=== PATIENT | female | born 1975 | race African-American/Black ===

== ENCOUNTER 2019-07-28 05:29 | Emergency (ER) | payer BC, MEDICAID, SELFPAY ==
--- NOTE | ~2019-07-28 | XR_ITS ---
EXAMINATION: XR chest 2V DATE: 07/28/2019 05:57 INDICATION: Cough TECHNIQUE: PA and lateral views of the chest are obtained. COMPARISON: 05/31/2019 FINDINGS: The lungs are free of acute opacities. There is no pleural effusion or pneumothorax. The ca rdiomediastinal silhouette is normal. There is moderate thoracic spondylosis. IMPRESSION: 1. No acute cardiopulmonary abnormality. Reviewed, dictated and finalized at location A. [employer]
[2019-07-28 05:31] VITALS: BP 156/85; PULSE 89; RESP 20; TEMP 36.4; O2SAT 100
--- NOTE | 2019-07-28 05:58 | ED.URI ---
HPI - URI/Sore Throat General Chief Complaint: Upper Respiratory Infection Stated Complaint: sore throat Time Seen by Provider: 07/28/19 05:53 Source: RN notes reviewed History of Present Illness HPI Narrative: Patient presents to emergency department from home for upper respiratory infection. Patient states symptoms began yesterday. States that she has been having rhinorrhea sore throat and a cough that is been nonproductive. Denies any fevers or chills chest pain shortness of breath abdominal pain nausea vomiting diarrhea or any other symptoms. States she took some NyQuil at 10:00 last night. Denies any other symptoms at this time Related Data Home Medications Medication Instructions Recorded Confirmed aspirin 81 mg PO DAILY 05/31/19 metoprolol tartrate 25 mg 05/31/19 Allergies Allergy/AdvReac Type Severity Reaction Status Date / Time SHELLFISH Allergy Unknown Uncoded 05/31/19 13:21 Review of Systems Review of Systems: Narrative: Gen.: Denies fevers or chills Eyes: Denies eye pain or visual change ENT: Reports sore throat and congestion Respiratory: Denies shortness of breath reports nonproductive cough CV: Denies chest pain or palpitations GI: Denies abdominal pain nausea, emesis or diarrhea Musculoskeletal: Denies back pain or muscle pain Neuro: Denies numbness, tingling, weakness or focal weakness Skin: Denies rash Except as documented, all other systems reviewed and negative FORMERLY [facility] Past Medical History Medical History (Updated 07/28/19 @ 06:00 by Bong Park DO) Patient denies significant medical history Surgical History Surgical History (Updated 05/31/19 @ 16:29 by Paige Frias PA-C) History of section Social History Social History Smoking status: Never smoker Exam Narrative: Exam Narrative: APPEARANCE: No acute distress, nontoxic, resting in bed EYES: EOMI HEENT: Normocephalic, atraumatic, TMs clear bilaterally, bilateral turbinates boggy, erythema the posterior pharynx and bilateral tonsils with small amount of whitish exudate over bilateral tonsils, uvula midline, no trismus, tolerating own secretions, voice normal RESPIRATORY: No respiratory distress Clear to auscultation bilaterally with no rhonchi wheezing or rales. CARDIOVASCULAR: Regular rate and rhythm without murmurs rubs or gallops. ABDOMINAL: Soft, nontender, nondistended, no rebound or guarding MUSCULOSKELETAl: Moves all extremities. No clubbing, cyanosis or edema. NEURO: Awake and alert. Following commands, speech normal, no focal deficits SKIN:: Warm, dry. No rashes lesions or abrasions PSYCHIATRIC: Normal affect/mood, Course Course Emergency Course: Discussed with patient results of workup and diagnosis. Discussed need for follow-up with primary care, proper use of medication, and reasons to return to the emergency department. Patient understands and agrees to current treatment plan. Did discuss with the patient her diagnosis of influenza A. We had a long discussion regarding Tamiflu and risks and benefits. At this time joint decision was made with the patient and myself not to start Tamiflu Vital Signs Vital signs: Vital Signs Temperature 97.6 F 07/28/19 05:31 Pulse Rate 89 07/28/19 05:31 Respiratory Rate 20 07/28/19 05:31 Blood Pressure 156/85 H 07/28/19 05:31 Pulse Oximetry 100 07/28/19 05:31 Temperature 97.6 F 07/28/19 05:31 Pulse Rate 89 07/28/19 05:31 Respiratory Rate 20 07/28/19 05:31 Blood Pressure 156/85 H 07/28/19 05:31 Pulse Oximetry 98 07/28/19 05:59 MDM - URI/Sore Throat Lab Data Labs: Influenza A Screen Positive Reference Range: Negative Influenza B Screen Negative Reference Range: Negative Strep Screen Positive Group A Strep *(Reference Range: Negative)* Imaging Data Attestation: I personally reviewed and interpreted this i
[2019-07-28 05:59] VITALS: O2SAT 98
[2019-07-28] MEDS: IBUPROFEN 600 MG TABLET PO (06:07)
[2019-07-28 06:15] VITALS: BP 133/81; PULSE 80; RESP 18; TEMP 37.2; O2SAT 100
[2019-07-28] MEDS: AMOXICILLIN 500 MG CAPSULE PO (06:26)
== END 2019-07-28 06:15 | disposition home or self-care (01) ==
PROVIDERS: Emergency Provider Emergency Medicine
DX: J10.1 Influenza due to other identified influenza virus with other respiratory manifestations (principal)
CPT/HCPCS: 71046; 87804; 87880; 99283; A9270

== ENCOUNTER 2020-09-01 03:57 | Emergency (ER) | payer BC, MEDICAID, SELFPAY ==
--- NOTE | ~2020-09-01 | XR_ITS ---
EXAMINATION: XR ankle RT min 3V DATE: 09/01/2020 04:40 INDICATION: Posterior lateral right ankle pain TECHNIQUE: 1. Anteroposterior, mortise, additional oblique and lateral view of the right ankle were obtained. 2. Dorsoplantar, two oblique and lateral views of the right foot were obtained. COMPARISON: None. FINDINGS: Alignment of the foot and ankle is normal. No fracture. Large enthesophyte and large enthesopathic os sicle at the calcaneal insertion of the distal Achilles tendon. Small plantar calcaneal spur. Additio nal small enthesophyte at the lateral base of the fifth metatarsal. Joint spaces are well maintained. No ankle joint effusion. The soft tissues are unremarkable. IMPRESSION: 1. No acute osseous abnormality. 2. Severe chronic distal Achilles enthesopathy. Reviewed, dictated and finalized at location A.
--- NOTE | ~2020-09-01 | XR_ITS ---
EXAMINATION: XR ankle RT min 3V DATE: 09/01/2020 04:40 INDICATION: Posterior lateral right ankle pain TECHNIQUE: 1. Anteroposterior, mortise, additional oblique and lateral view of the right ankle were obtained. 2. Dorsoplantar, two oblique and lateral views of the right foot were obtained. COMPARISON: None. FINDINGS: Alignment of the foot and ankle is normal. No fracture. Large enthesophyte and large enthesopathic os sicle at the calcaneal insertion of the distal Achilles tendon. Small plantar calcaneal spur. Additio nal small enthesophyte at the lateral base of the fifth metatarsal. Joint spaces are well maintained. No ankle joint effusion. The soft tissues are unremarkable. IMPRESSION: 1. No acute osseous abnormality. 2. Severe chronic distal Achilles enthesopathy. Reviewed, dictated and finalized at location A.
[2020-09-01 04:06] VITALS: BP 142/93; PULSE 84; RESP 20; TEMP 36.1; O2SAT 99
--- NOTE | 2020-09-01 04:23 | ED.LOWEXIN ---
HPI - Extremity Injury (Lower) General Chief Complaint: Extremity Injury, Lower Stated Complaint: foot injury Time Seen by Provider: 09/01/20 04:02 Source: patient Mode of arrival: ambulatory Limitations: no limitations History of Present Illness HPI Narrative: This is a 45 year old female who presents for evaluation right ankle pain and right foot pain. She states yesterday evening she twisted her right foot when she attempted to wear high heels. She took aleve at that time . She woke up this morning to get ready for work, and she noticed worsening pain to right lateral foot and lateral ankle . She has pain with ambulation. He applied lidocaine cream to her ankle and she states she has not had any relief. Related Data Home Medications Medication Instructions Recorded Confirmed aspirin 81 mg PO DAILY 05/31/19 metoprolol tartrate 25 mg 05/31/19 Allergies Allergy/AdvReac Type Severity Reaction Status Date / Time shellfish derived Allergy Unknown Verified 09/01/20 04:21 SHELLFISH Allergy Unknown Uncoded 09/01/20 04:16 Review of Systems Review of Systems: All systems reviewed & are unremarkable except as noted in HPI and below PMFSH Past Medical History Medical History Patient denies significant medical history Surgical History Surgical History History of section Social History Social History Smoking status: Never smoker Gender identity (if verbalized by the patient): Female Exam Const: General: no acute distress and alert Orientation/consciousness: patient oriented x3 Eyes: EOM: EOMs intact bilaterally Resp: Effort & Inspection: normal respiratory effort Skin: General skin exam: normal color Rashes: no rashes Neuro: General: patient oriented x3 and moves all extremities Extrem: Other: right ankle- no swelling or ecchymosis, TTP right lateral foot Psych: Mental Status: mental status grossly normal Affect: normal affect Course Reevaluation(s) Reevaluation #1: I reviewed with patient preliminary xray results. No fracture. I discussed if discrepancy found she will be notified. This appears to be sprain. Date: 09/01/20 Time: 04:57 Vital Signs Vital signs: Vital Signs Temperature 97 F L 09/01/20 04:06 Pulse Rate 84 09/01/20 04:06 Respiratory Rate 20 09/01/20 04:06 Blood Pressure 142/93 H 09/01/20 04:06 Pulse Oximetry 99 09/01/20 04:06 Temperature 97 F L 09/01/20 04:06 Pulse Rate 84 09/01/20 04:06 Respiratory Rate 20 09/01/20 04:06 Blood Pressure 142/93 H 09/01/20 04:06 Pulse Oximetry 99 09/01/20 04:06 MDM - Extremity Injury (Lower) Imaging Data Attestation: I personally reviewed and interpreted this imaging study as follows: My impression: right ankle/right foot- no acute fracture, there is large achilles tendon calcification Discharge Plan Discharge Clinical Impression: Right ankle sprain Qualifiers: Encounter type: initial encounter Involved ligament of ankle: unspecified ligament Qualified Code(s): S93.401A - Sprain of unspecified ligament of right ankle, initial encounter Patient Disposition: Home, Self-Care Condition: Stable Instructions: Ankle Sprain (ED) Additional Instructions: Today you were evaluated for an ankle sprain. Your preliminary read of your xray shows no fracture. It will be read by radiology later in the day. If radiologist finds a fracture during final read you will be notified. Continue to apply ice to your ankle intermittent for next 24-48 hours. Take aleve or ibuprofen for your pain. You can get an ankle brace from a store such as [employer]. Prescriptions: No Action ibuprofen [IBU] 600 mg tablet 600 mg PO Q6H PRN (Reason: pain) Qty: 20 RF: 0 aspirin 81 mg Tablet,Chewable 81 mg PO DAILY RF: 0 metoprol
[2020-09-01] MEDS: IBUPROFEN 400 MG TABLET 800 MG PO (04:34)
== END 2020-09-01 05:28 | disposition home or self-care (01) ==
PROVIDERS: Emergency Provider General Practice; PCP Internal Medicine
DX: S93.401A Sprain of unspecified ligament of right ankle, initial encounter (principal); X50.9XXA Other and unspecified overexertion or strenuous movements or postures, initial encounter
CPT/HCPCS: 73610; 73630; 99283; A9270